=== PATIENT | male | born 1945 | race Caucasian/White ===

== ENCOUNTER → 2020-10-01 | Outpatient (CLI) | payer MEDICARE ==
[~2020-10-01] MED LIST: ATOR10TA9 PO; FINA5TAB4 PO; LISI-170 PO; NIAC-27 PO; TAMS-11 PO; TRAZ-175 PO; VENL75TA PO
[2020-10-01 11:39] LABS: BASOPHILS % (AUTO) 1 % (0-1); EOSINOPHILS % (AUTO) 3 % (1-7); LYMPHOCYTES % (AUTO) 22 % (22-44); MEAN CORPUSCULAR HEMOGLOBIN 31.2 pg (27.5-34.5); MEAN CORPUSCULAR HGB CONC 33.8 g/dL (33.2-36.2); MEAN PLATELET VOLUME 7.4 fL (7.4-10.4); MONOCYTES % (AUTO) 7 % (2-9); NEUTROPHILS % (AUTO) 67 % (42-75); PLATELET COUNT 195 x10^3/uL (130-400); RED CELL DISTRIBUTION WIDTH 13.7 % (9.4-14.8)
[2020-10-01 11:41] LABS: MD NO
[2020-10-01 11:43] LABS: CHLORIDE 108 mmol/L (98-107)
[2020-10-01 11:47] LABS: ALANINE AMINOTRANSFERASE 45 U/L (12-78); ALBUMIN 3.8 g/dL (3.4-5.0); ALKALINE PHOSPHATASE 83 U/L (45-117); ANION GAP 4 mmol/L (5-15); BILIRUBIN,TOTAL 0.7 mg/dL (0.2-1.0); CALCIUM 9.1 mg/dL (8.5-10.1); CREATININE 1.27 mg/dL (0.7-1.3); TOTAL PROTEIN 6.8 g/dL (6.4-8.2)
== END | disposition home or self-care (01) ==
LOC: STAR 10:36
PROVIDERS: ATTEND Colon & Rectal Surgery
DX: Z01.810 Encounter for preprocedural cardiovascular examination (principal); K40.90 Unilateral inguinal hernia, without obstruction or gangrene, not specified as recurrent; Z20.822 Contact with and (suspected) exposure to COVID-19
CPT/HCPCS: 36415; 71046; 80053; 85025; 93005; U0003

== ENCOUNTER 2020-10-07 06:42 | Day surgery (SDC) | payer MEDICARE ==
[~2020-10-07] VITALS: Ht 175.3 cm; Wt 83.8 kg
[2020-10-07 07:18] VITALS: BP 121/86
[2020-10-07] MEDS ORDERED: CHLORHEXIDINE 15 ML UDC ONE (07:26)
[2020-10-07] MEDS ORDERED: LACTATED RINGERS 1,000 ML IV SCH (07:30)
[2020-10-07] MEDS ORDERED: CHLORHEXIDINE 15 ML UDC PO ONE (07:30)
[2020-10-07] MEDS ORDERED: BUPIVACAINE/PF 0.5% ONE (07:48)
[2020-10-07] MEDS ORDERED: FENTANYL PF 250 MCG/5ML ONE (08:03)
[2020-10-07] MEDS ORDERED: HALOPERIDOL 5 MG/ML IV PRN (08:30)
[2020-10-07] MEDS ORDERED: LABETALOL 5MG/ML, 20ML IV PRN (08:30)
[2020-10-07] MEDS ORDERED: HYDROmorphone 1 MG/ML, 1ML INJ IVPush PRN (08:30)
[2020-10-07] MEDS ORDERED: PROMETHAZINE 25 MG/ML, 1ML IVPush PRN (08:30)
[2020-10-07] MEDS ORDERED: hydrALAzine 20 MG/ML, 1ML IV PRN (08:30)
[2020-10-07] MEDS ORDERED: MEPERIDINE/PF 25MG/0.5ML IVPush PRN (08:30)
[2020-10-07] MEDS ORDERED: OXYcodone 5 MG/5 ML ORAL.SOL UDC PO PRN (08:30)
[2020-10-07] MEDS ORDERED: FENTANYL PF 100 MCG/2ML IV PRN (08:30)
[2020-10-07] MEDS ORDERED: DIPHENHYDRAMINE 50 MG/ML, 1ML IVPush PRN (08:30)
[2020-10-07] MEDS ORDERED: ACETAMINOPHEN 325 MG TABLET PO PRN (08:30)
[2020-10-07] MEDS ORDERED: KETOROLAC 30 MG/1 ML ONE (08:50)
[2020-10-07] MEDS ORDERED: HYDROmorphone 1 MG/ML, 1ML INJ ONE (08:53)
[2020-10-07] MEDS ORDERED: GLYCOPYRROLATE 0.2MG/1ML, 5ML ONE (09:32)
[2020-10-07] MEDS ORDERED: PROPOFOL 10 MG/ML, 20ML ONE (09:32)
[2020-10-07] MEDS ORDERED: CEFAZOLIN 1,000 MG ONE (09:32)
[2020-10-07] MEDS ORDERED: SUCCINYLCHOLINE 20 MG/ML, 10ML ONE (09:32)
[2020-10-07] MEDS ORDERED: ROCURONIUM 10MG/ML,5ML ONE (09:32)
[2020-10-07] MEDS ORDERED: ONDANSETRON 2MG/ML, 2ML ONE (09:32)
[2020-10-07] MEDS ORDERED: NEOSTIGMINE 1 MG/ML, 10ML ONE (09:32)
[2020-10-07] MEDS ORDERED: DEXAMETHASONE 4 MG/ML, 1ML ONE (09:32)
[2020-10-07] MEDS ORDERED: OXYC1TAB14 PO ×3 (09:41→11:12)
== END 2020-10-07 17:35 | disposition home or self-care (01) ==
LOC: OUT 06:42
PROVIDERS: ATTEND Surgery
DX: K40.90 Unilateral inguinal hernia, without obstruction or gangrene, not specified as recurrent (principal); Z85.46 Personal history of malignant neoplasm of prostate
CPT/HCPCS: 49650; C1781; J0330; J0690; J1100; J1170; J1885; J2405; J2704; J2710; J3010